=== PATIENT | male | born 1975 | race American Indian/Alaskan Native ===

== ENCOUNTER 2021-03-10 15:39 | Emergency (ER) | payer SELFPAY ==
[2021-03-10] MEDS ORDERED: IBUPROFEN 800 MG TAB PO ONE (18:18)
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
[2021-03-10] MEDS ORDERED: SODIUM CHLORIDE 0.9% 1000 ML 1,000 ML IV ONE (20:05)
[2021-03-10] MEDS ORDERED: ETOMIDATE 20 MG/10 ML INJ IV ONE (20:05)
--- NOTE | 2021-03-10 21:16 | XRay Report ---
RIGHT ANKLE 2 VIEWS INDICATION / CLINICAL INFORMATION: post reduction film COMPARISON: Right tibia/fibular series from earlier today. FINDINGS: BONES and JOINT(S): There has been interval closed reduction and splint placement with improved align ment of the ankle. Comminuted acute distal tibial and fibular fractures are again noted. SOFT TISSUES: Generalized edema remains along the ankle. ADDITIONAL FINDINGS: None. IMPRESSION: Improved alignment of the right ankle after closed reduction. Signer Name: Ludwin Weinberg MD Signed: 03/10/2021 9:11 PM Workstation Name: [id number]
[2021-03-10 22:25] VITALS: BP 101/71
== END 2021-03-10 22:25 | disposition home or self-care (01) ==
LOC: ED 15:39
DX: S82.851A Displaced trimalleolar fracture of right lower leg, initial encounter for closed fracture (principal); J45.909 Unspecified asthma, uncomplicated; Z79.899 Other long term (current) drug therapy; W18.30XA Fall on same level, unspecified, initial encounter; Y93.89 Activity, other specified; Y92.89 Other specified places as the place of occurrence of the external cause; Y99.8 Other external cause status
CPT/HCPCS: 27818; 73590; 73600; 96360; 99283; J7030

== ENCOUNTER 2021-05-11 07:00 | Day surgery (SDC) | payer OTHER ==
[~2021-05-11 07:00] MED LIST: ACETAMINOPHEN 500 MG TAB PO SCH; BUPIVACAINE/PF (0.5%) 5 MG/1 ML 30 ML VIAL INFILTRATI ONE; CELECOXIB 200 MG CAP PO NR; GABAPENTIN 300 MG CAP PO NR; LACTATED RINGERS 1,000 ML IV SCH; MIDAZOLAM 2 MG/2 ML INJ IV NR; NEOMY 40 MG/POLYMYXIN B 200,000 UNITS/ML (GU) AMPULE IR ONE; SODIUM CHLORIDE 0.9% IRR 1,500 ML BOTTLE IR ONE; ceFAZolin/Water 2 GM/20 ML 2 GM/20 ML SYRINGE IV NR; fentaNYL 100 MCG/2 ML INJ IV PRN
[2021-05-11] MEDS ORDERED: BACTERIOSTATIC SODIUM CHLORIDE 0.9% 30 ML VIAL INFILTRATI ONE (07:39)
[2021-05-11] MEDS ORDERED: NEOMY 40 MG/POLYMYXIN B 200,000 UNITS/ML (GU) AMPULE IR ONE ×2 (07:52→11:14)
[2021-05-11] MEDS ORDERED: BUPIVACAINE/PF (0.5%) 5 MG/1 ML 30 ML VIAL INFILTRATI ONE (07:52)
[2021-05-11] MEDS ORDERED: LIDOCAINE MPF (2%) 20 MG/1 ML VIAL 5 ML ONE (08:09)
[2021-05-11] MEDS ORDERED: propofoL 200 MG/20 ML VIAL IV ONE (08:10)
[2021-05-11] MEDS ORDERED: fentaNYL 100 MCG/2 ML INJ ONE (08:10)
--- NOTE | 2021-05-11 08:22 | Anesthesia Day of Surgery ---
Anesthesia Day of Surgery - Day of Surgery Patient Examined: Yes Patient H&P Reviewed: Yes Patient is NPO: Yes
--- NOTE | 2021-05-11 08:22 | Anesthesia Consultation ---
Anesthesia Consult and Med Hx Date of service: 05/11/21 - Airway Anesthetic Teeth Evaluation: Good ROM Head & Neck: Adequate Mental/Hyoid Distance: Adequate Mallampati Class: Class III Intubation Access Assessment: Possibly Difficult - Pre-Operative Health Status ASA Pre-Surgery Classification: ASA2 Proposed Anesthetic Plan: General Nerve Block: Adductor + popliteal - Pulmonary Hx Smoking: Yes (1/2 PPD) Hx Asthma: Yes (last inhlaer use 3 days ago) Hx Respiratory Symptoms: No Hx Sleep Apnea: No (KALEB PRE SCREEN HIGH RISK) - Cardiovascular System Hx Hypertension: No Hx Heart Attack/AMI: No - Central Nervous System CVA: No - Endocrine Hx Renal Disease: No Hx Liver Disease: No Hx Insulin Dependent Diabetes: No Hx Non-Insulin Dependent Diabetes: No Hx Thyroid Disease: No - Other Systems Hx Obesity: No - Additional Comments Anesthesia Medical History Comments: No hx anesthetic complications.
[2021-05-11] MEDS ORDERED: BUPIVACAINE/PF (0.25%) 2.5 MG/ML 30 ML VIAL INFILTRATI ONE (08:24)
--- NOTE | 2021-05-11 08:56 | XRay Report ---
RIGHT ANKLE 2 VIEW(S) INDICATION / CLINICAL INFORMATION: PREOP SURGERY ON 05/11/20 COMPARISON: 03/10/2021 FINDINGS: BONES / JOINT(S): Subacute-chronic, comminuted, distal tibia and fibula fractures with mild varus ang ulation and approximately 2 cm of tibial foreshortening. Appearance is similar when compared to 021 and there is overall anatomical alignment. There is significantly decreased attenuation of the po sterior talus suggestive of osteolysis. This is significantly different when compared to 03/10/2021. Si milar findings, however to a lesser degree are seen at the calcaneocuboid articulation. No significan t arthritis. SOFT TISSUES: No significant abnormality. ADDITIONAL FINDINGS: None. Signer Name: Marcelo Yun MD Signed: 05/11/2021 8:52 AM Workstation Name: [id number]
[2021-05-11] MEDS ORDERED: oxyCODONE /ACETAMINOPHEN 5-325MG TAB PO PRN (11:00)
[2021-05-11] MEDS ORDERED: ONDANSETRON 4 MG/2 ML INJ IV PRN (11:00)
[2021-05-11] MEDS ORDERED: ePHEDrine SULFATE 50 MG/1 ML INJ ONE (11:03)
[2021-05-11] MEDS ORDERED: SODIUM CHLORIDE 0.9% IRR 1,500 ML BOTTLE IR ONE (11:14)
[2021-05-11] MEDS ORDERED: ONDANSETRON 4 MG/2 ML INJ ONE (13:33)
[2021-05-11] MEDS ORDERED: PHENYLEPHRINE/NS 1,000 MCG/10 ML SYRINGE (OR USE) IV ONE (13:33)
[2021-05-11] MEDS: HYDROmorphone 1 MG/1 ML INJ IV PRN ×2 (14:00→14:20)
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
[2021-05-11 15:32] LABS: Hematocrit 36.7 % (35.5-45.6); Hemoglobin 12.4 gm/dl (11.8-15.2)
--- NOTE | 2021-05-11 15:33 | XRay Report ---
Right ankle 2 views INDICATION: Right ankle pain IMPRESSION: Satisfactory ORIF of right ankle. Fluoroscopy time: 35 seconds. Fluoroscopic images: 2. Signer Name: Arnaud Brush MD Signed: 05/11/2021 3:29 PM Workstation Name: [id number]
[2021-05-11 17:01] VITALS: BP 108/70
--- NOTE | 2021-05-11 17:07 | Post Anesthesia Evaluation ---
- Post Anesthesia Evaluation Patient Participated: Yes Airway Patent: Yes Stable Respiratory Function: Yes Nausea/Vomiting: No Temp > 96.8F: Yes Pain Manageable: Yes Adequeate Hydration: Yes Anesthesia Complications: No
== END 2021-05-11 16:40 | disposition home or self-care (01) ==
LOC: OR 07:00
PROVIDERS: ATTEND Orthopaedic Surgery
DX: S82.391D Other fracture of lower end of right tibia, subsequent encounter for closed fracture with routine healing (principal); S82.831D Other fracture of upper and lower end of right fibula, subsequent encounter for closed fracture with routine healing; F17.210 Nicotine dependence, cigarettes, uncomplicated; J45.909 Unspecified asthma, uncomplicated; Z98.890 Other specified postprocedural states; Z79.899 Other long term (current) drug therapy; X58.XXXD Exposure to other specified factors, subsequent encounter
CPT/HCPCS: 27720; 36415; 64447; 64450; 73600; 80048; 85014; 85018; 85025; 85610; 85730; 99285; C1713; G0378; J0690; J1170; J2250; J2370; J2405; J2704; J3010; J7120; 96361; 96374; 96375; 96376; J2270; J7030

== ENCOUNTER 2021-05-11 20:45 | Observation (INO) | payer OTHER ==
[2021-05-11 22:17] LABS: Basophils % (Auto) 0.1 % (0.0-1.8); Eosinophils % (Auto) 0.1 % (0.0-4.3); Hematocrit 33.9 % (35.5-45.6); Hemoglobin 11.3 gm/dl (11.8-15.2); Lymphocytes # (Auto) 0.8 K/mm3 (1.2-5.4); Lymphocytes % (Auto) 6.1 % (13.4-35.0); Mean Corpuscular HGB Conc 33 % (32-34); Mean Corpuscular Volume 97 fl (84-94); Monocytes # (Auto) 1.1 K/mm3 (0.0-0.8); Monocytes % (Auto) 8.8 % (0.0-7.3); Platelet Count 160 K/mm3 (140-440); Red Cell Distribution Width 13.4 % (13.2-15.2)
[2021-05-11 22:25] LABS: Blood Urea Nitrogen 6 mg/dL (9-20); Calcium 8.7 mg/dL (8.4-10.2); Hemolysis Index 8
[2021-05-11 22:31] LABS: BUN/Creatinine Ratio 12
--- NOTE | 2021-05-11 22:36 | Emergency Department Report ---
HPI - General Chief Complaint: Wound/Laceration Time Seen by Provider: 05/11/21 21:42 - HPI HPI: Room 23 The patient is a 46-year-old male present with a chief complaint of postop bleeding. The patient status post bimalleolar fracture repair earlier this afternoon by Dr. Xavier. Patient states he was discharged home this afternoon and was instructed to return if he continues to bleed. Patient states at home he noticed blood soaking through his splint and 1 to his protective pad. Patient states he soaked 2 pads and then went to sleep and when he woke back up he was still bleeding. The patient subsequently contacted Dr. Xavier and came to the emergency department. Patient denies shortness of breath or dizziness. Patient states he feels all right except for the pain in his right lower extremity ED Past Medical Hx - Past Medical History Previous Medical History?: Yes Hx Asthma: Yes (last inhlaer use 3 days ago) - Surgical History Past Surgical History?: Yes Additional Surgical History: Left ankle surgery - Family History Family history: no significant - Social History Smoking Status: Current Every Day Smoker Substance Use Type: None - Medications Home Medications: Home Medications Medication Instructions Recorded Confirmed Last Taken Type HYDROcodone/APAP 5-325 [[facility] 1 each PO Q6HR PRN #14 tablet 03/10/21 05/05/21 Unknown Rx 5/325] Oxycodone HCl/Acetaminophen 1 each PO Q6HR PRN #30 tablet 05/11/21 Unknown Rx [Percocet 10/325 mg] ED Review of Systems ROS: Stated complaint: ANKLE SURGERY/BLEEDING Other details as noted in HPI Constitutional: no symptoms reported Eyes: denies: eye pain ENT: denies: throat pain Respiratory: denies: shortness of breath Cardiovascular: denies: chest pain Endocrine: no symptoms reported Gastrointestinal: denies: abdominal pain Musculoskeletal: arthralgia Neurological: denies: headache Hematological/Lymphatic: other (Bleeding from surgical wound) Physical Exam - Physical Exam Vital Signs: Vital Signs 05/11/21 21:15 Temperature 97.4 F L Pulse Rate 94 H Respiratory 18 Rate Blood Pressure 118/70 O2 Sat by Pulse 98 Oximetry Physical Exam: GENERAL: The patient is well-developed well-nourished male lying on stretcher not appearing to be in acute distress. [] HEENT: Normocephalic. Atraumatic. Extraocular motions are intact. Patient has moist mucous membranes. NECK: Supple. Trachea midline CHEST/LUNGS: There is no respiratory distress noted. HEART/CARDIOVASCULAR: Regular. There is no tachycardia. 2+ right DP ABDOMEN: There is no abdominal distention. SKIN: There is no rash. There is no edema. There is no diaphoresis. The patient splint was taken down and 3 incisions observed (lateral, central and medial). There is a study who is of dark blood coming from the middle of the central incision site. Direct pressure was held for 5 minutes the patient continued to bleed when pressure was removed. Pressure dressing was placed NEURO: The patient is awake, alert, and oriented. The patient is cooperative. The patient has no focal neurologic deficits. The patient has normal speech. GCS 15 MUSCULOSKELETAL: There is no evidence of acute injury. ED Course Vital Signs 05/11/21 21:15 Temperature 97.4 F L Pulse Rate 94 H Respiratory 18 Rate Blood Pressure 118/70 O2 Sat by Pulse 98 Oximetry - Consultations Consultation #1: 05/11/21 22:32 Pics, video sent to and case discussed with orthopedic surgeon Dr. Xavier-agrees with pressure dressing. Requests hospitalist admit and he will evaluate the patient ED Medical Decision Making - Lab Data Result diagrams: 05/11/21 21:59 05/11/21 21:59 Laboratory Tests 05/11/21 05/11/21 05/11/21 21:59 21:59 21:59 WBC 12.5 H RBC 3.50 L Hgb 11.3 L Hct 33.9 L MCV 97 H MCH 32 MCHC 33 RDW 13.4 Plt Count 160 Lymph % (Auto) 6.1 L [place] % (Auto) 8.8 H Eos % (Auto) 0.1 Baso % (Auto) 0.1 Lymph # (Auto) 0.8 L [place] # (Auto) 1.1 H Eos # (Auto) 0.0 Baso # (Auto) 0.0 Seg Neutrophils % 84.9 H Seg Neutrophils # 10.6 H PT 13.6 INR 0.98 APTT 24.1 L Sodium 138 Potassium 3.8 Chloride 100.0 Carbon Dioxide 30 Anion Gap 12 BUN 6 L Creatinine 0.5 L Estimated GFR > 60 BUN/Creatinine Ratio 12 Glucose 107 H Calcium 8.7 - Differential Diagnosis Postop bleeding Critical care attestation.: If time is entered above; I have spent that time in minutes in the direct care of this critically ill patient, excluding procedure time. ED Disposition Clinical Impression: Postoperative bleeding from incision Disposition: DC-09 OP ADMIT IP TO THIS HOSP Is pt being admited?: Yes Does the pt Need Aspirin: No Condition: Fair Time of Disposition: 22:44 (Hospitalist paged (Dr Agrawal))
[2021-05-11 22:40] LABS: INR 0.98 (0.87-1.13); Partial Thromboplastin Time 24.1 Sec. (24.2-36.6)
[2021-05-11] MEDS ORDERED: NICOTINE 14 MG/24 HR PATCH TD ONE (23:00)
[2021-05-11] MEDS ORDERED: ACETAMINOPHEN 325 MG TAB PO PRN (23:14)
[2021-05-11] MEDS ORDERED: ONDANSETRON 4 MG/2 ML INJ IV PRN (23:14)
[2021-05-11] MEDS ORDERED: MAGNESIUM HYDROXIDE (MOM) ORAL LIQD UDC PO PRN (23:14)
[2021-05-11] MEDS ORDERED: SODIUM CHLORIDE 0.9% 1000 ML 1,000 ML IV SCH (23:15)
--- NOTE | 2021-05-11 23:20 | History and Physical Report ---
History of Present Illness Date of examination: 05/11/21 Date of admission: 05/11/2021 Chief complaint: Post-op Bleeding History of present illness: 46-year-old -Citizen Of [place] male presenting in the emergency room today complaining of bleeding from ankle postoperatively. Patient is status post bimalleolar fracture repair earlier this afternoon by Dr. Xavier and was discharged home later in the afternoon and instructed to return to the emergency room if bleeding continues. He had noticed blood soaking his splint and therefore reported to the emergency room for further evaluation. Patient denies any chest pain or shortness of breath, denies any headache or dizziness, no nausea vomiting and no abdominal pain. Work-up in the emergency room today reveals a slight drop of his hemoglobin from 12.4-11.3. Pressure dressing was applied to the right ankle bleeding site and orthopedic surgeon was consulted and notified by the ER physician. Patient is being admitted with postoperative bleeding. Past History Past Medical History: other (Asthma) Past Surgical History: Other (Ankle surgery) Social history: smoking (Current daily smoker) Family history: no significant family history Medications and Allergies Allergies Allergy/AdvReac Type Severity Reaction Status Date / Time No Known Allergies Allergy Verified 05/05/21 17:31 Home Medications Medication Instructions Recorded Confirmed Last Taken Type HYDROcodone/APAP 5-325 [[place] 1 each PO Q6HR PRN #14 tablet 03/10/21 05/12/21 Unknown Rx 5/325] Oxycodone HCl/Acetaminophen 1 each PO Q6HR PRN #30 tablet 05/11/21 05/12/21 Unknown Rx [Percocet 10/325 mg] Active Meds: Active Medications Acetaminophen (Acetaminophen 325 Mg Tab) 650 mg PO Q4H PRN PRN Reason: Pain MILD(1-3)/Fever >100.5/ROMAN Sodium Chloride (Nacl 0.9% 1000 Ml) 1,000 mls @ 75 mls/hr IV DIRECT HARRIETT Magnesium Hydroxide (Magnesium Hydroxide (Mom) Oral Liqd Udc) 30 ml PO Q4H PRN PRN Reason: Constipation Morphine Sulfate (Morphine 2 Mg/1 Ml Inj) 2 mg IV Q4H PRN PRN Reason: Pain, Moderate (4-6) Ondansetron HCl (Ondansetron 4 Mg/2 Ml Inj) 4 mg IV Q8H PRN PRN Reason: Nausea And Vomiting Sodium Chloride (Sodium Chloride 0.9% 10 Ml Flush Syringe) 10 ml IV BID HARRIETT Sodium Chloride (Sodium Chloride 0.9% 10 Ml Flush Syringe) 10 ml IV PRN PRN PRN Reason: LINE FLUSH Review of Systems Constitutional: no fever, no chills Ears, nose, mouth and throat: no nasal congestion, no sore throat Cardiovascular: no chest pain, no palpitations Respiratory: no cough, no shortness of breath Gastrointestinal: no abdominal pain, no nausea, no vomiting Genitourinary Male: no dysuria, no hematuria, no nocturia Musculoskeletal: no neck pain, no low back pain Integumentary: no rash, no pruritis Neurological: no syncope, no headaches, no confusion Exam - Constitutional Vitals: Temp Pulse Resp BP Pulse Ox 97.4 F L 94 H 18 118/70 98 05/11/21 21:15 05/11/21 21:15 05/11/21 21:15 05/11/21 21:15 05/11/21 21:15 General appearance: Present: no acute distress, well-nourished - EENT Eyes: Present: PERRL, EOM intact. Absent: scleral icterus ENT: hearing intact, clear oral mucosa, dentition normal - Neck Neck: Present: supple, normal ROM - Respiratory Respiratory effort: normal Respiratory: bilateral: CTA - Cardiovascular Rhythm: regular Heart Sounds: Present: S1 & S2. Absent: gallop, systolic murmur, diastolic murmur, rub, click - Extremities Extremities: no ischemia, pulses intact, pulses symmetrical, No edema, normal temperature, normal color, Full ROM, abnormal (Dressing on right ankle, Obvious bleeding.) Peripheral Pulses: within normal limits - Abdominal General gastrointestinal: Present: soft, non-tender, non-distended, normal bowel sounds. Absent: mass - Integumentary Integumentary: Present: clear, warm, dry, normal turgor. Absent: rash - Musculoskeletal Musculoskeletal: strength equal bilaterally - Psychiatric Psychiatric: appropriate mood/affect, intact judgment & insight, memory intact, cooperative - Neurologic Neurologic: CNII-XII intact, no focal deficits, moves all extremities Results - Labs CBC & Chem 7: 05/11/21 21:59 05/11/21 21:59 Labs: Abnormal lab results 05/11/21 05/11/21 05/11/21 Range/Units 21:59 21:59 21:59 WBC 12.5 H (4.5-11.0) K/mm3 RBC 3.50 L (3.65-5.03) M/mm3 Hgb 11.3 L (11.8-15.2) gm/dl Hct 33.9 L (35.5-45.6) % MCV 97 H (84-94) fl Lymph % (Auto) 6.1 L (13.4-35.0) % [place] % (Auto) 8.8 H (0.0-7.3) % Lymph # (Auto) 0.8 L (1.2-5.4) K/mm3 [place] # (Auto) 1.1 H (0.0-0.8) K/mm3 Seg Neutrophils % 84.9 H (40.0-70.0) % Seg Neutrophils # 10.6 H (1.8-7.7) K/mm3 APTT 24.1 L (24.2-36.6) Sec. BUN 6 L (9-20) mg/dL Creatinine 0.5 L (0.8-1.3) mg/dL Glucose 107 H (75-100) mg/dL Assessment and Plan - Patient Problems (1) Postoperative bleeding from incision Current Visit: Yes Status: Acute Plan to address problem: Pressure dressing already applied to just bleeding site We will monitor CBC. Orthopedic surgeon Dr. Xavier has been consulted and notified by the JOSE cantu. (2) DVT prophylaxis Current Visit: Yes Status: Acute Plan to address problem: We will place patient on sequential compression device. (3) Full code status Current Visit: Yes Status: Acute Plan to address problem: Patient is full code.
[2021-05-12] MEDS: MORPHINE 2 MG/1 ML INJ IV PRN ×3 (02:10→12:18)
[2021-05-12 05:08] LABS: Basophils # (Auto) 0.1 K/mm3 (0.0-0.1); Basophils % (Auto) 0.7 % (0.0-1.8); Eosinophils % (Auto) 0.1 % (0.0-4.3); Hematocrit 34.7 % (35.5-45.6); Hemoglobin 11.7 gm/dl (11.8-15.2); Lymphocytes # (Auto) 0.9 K/mm3 (1.2-5.4); Lymphocytes % (Auto) 9.6 % (13.4-35.0); Mean Corpuscular HGB Conc 34 % (32-34); Mean Corpuscular Volume 95 fl (84-94); Monocytes % (Auto) 10.3 % (0.0-7.3); Platelet Count 162 K/mm3 (140-440); Red Blood Count 3.66 M/mm3 (3.65-5.03); Red Cell Distribution Width 13.3 % (13.2-15.2)
[2021-05-12 05:16] LABS: INR 0.97 (0.87-1.13)
[2021-05-12 05:23] LABS: Blood Urea Nitrogen 5 mg/dL (9-20); Hemolysis Index 2
[2021-05-12 05:24] LABS: BUN/Creatinine Ratio 10
--- NOTE | 2021-05-12 10:17 | Progress Note ---
Assessment and Plan Assessment and plan: Open reduction internal fixation of 2-month-old distal tib-fib fracture Postop bleeding episode (1) Postoperative bleeding from incision Current Visit: Yes Status: Acute Plan to address problem: Pressure dressing already applied to just bleeding site We will monitor CBC. Orthopedic surgeon Dr. Xavier has been consulted and notified by the ER physician. (2) DVT prophylaxis Current Visit: Yes Status: Acute Plan to address problem: We will place patient on sequential compression device. (3) Full code status Current Visit: Yes Status: Acute Plan to address problem: Patient is full code. Follow orthopedic evaluation and recommendations Possible discharge in 1 to 2 days if stable Plan of care reviewed with the patient and his nurse History Interval history: I have seen and examined the patient at the bedside this afternoon Patient's chart and medications reviewed Patient's leg is in dressing No new episodes of bleeding Patient complains of some pain at the surgical site Vital signs noted Hospitalist Physical - Constitutional Vitals: Temp Pulse Resp BP Pulse Ox 98.1 F 85 18 109/57 93 05/12/21 07:56 05/12/21 07:56 05/12/21 08:24 05/12/21 07:56 05/12/21 07:56 General appearance: Present: no acute distress, well-nourished - EENT Eyes: Present: PERRL, EOM intact - Neck Neck: Present: supple, normal ROM - Respiratory Respiratory effort: normal Respiratory: bilateral: diminished, negative: rales, rhonchi, wheezing - Cardiovascular Rhythm: regular Heart Sounds: Present: S1 & S2 - Extremities Extremities: no ischemia, No edema - Abdominal General gastrointestinal: soft, non-tender, non-distended, normal bowel sounds - Integumentary Integumentary: Present: clear, warm - Psychiatric Psychiatric: appropriate mood/affect, cooperative - Neurologic Neurologic: CNII-XII intact, moves all extremities Results - Labs CBC & Chem 7: 05/12/21 04:45 05/12/21 04:45 Labs: Laboratory Last Values WBC 9.8 K/mm3 (4.5-11.0) 05/12/21 04:45 RBC 3.66 M/mm3 (3.65-5.03) 05/12/21 04:45 Hgb 11.7 gm/dl (11.8-15.2) L 05/12/21 04:45 Hct 34.7 % (35.5-45.6) L 05/12/21 04:45 MCV 95 fl (84-94) H 05/12/21 04:45 MCH 32 pg (28-32) 05/12/21 04:45 MCHC 34 % (32-34) 05/12/21 04:45 RDW 13.3 % (13.2-15.2) 05/12/21 04:45 Plt Count 162 K/mm3 (140-440) 05/12/21 04:45 Lymph % (Auto) 9.6 % (13.4-35.0) L 05/12/21 04:45 [place] % (Auto) 10.3 % (0.0-7.3) H 05/12/21 04:45 Eos % (Auto) 0.1 % (0.0-4.3) 05/12/21 04:45 Baso % (Auto) 0.7 % (0.0-1.8) 05/12/21 04:45 Lymph # (Auto) 0.9 K/mm3 (1.2-5.4) L 05/12/21 04:45 [place] # (Auto) 1.0 K/mm3 (0.0-0.8) H 05/12/21 04:45 Eos # (Auto) 0.0 K/mm3 (0.0-0.4) 05/12/21 04:45 Baso # (Auto) 0.1 K/mm3 (0.0-0.1) 05/12/21 04:45 Seg Neutrophils % 79.3 % (40.0-70.0) H 05/12/21 04:45 Seg Neutrophils # 7.8 K/mm3 (1.8-7.7) H 05/12/21 04:45 PT 13.5 Sec. (12.2-14.9) 05/12/21 04:45 INR 0.97 (0.87-1.13) 05/12/21 04:45 APTT 24.1 Sec. (24.2-36.6) L 05/11/21 21:59 Sodium 137 mmol/L (137-145) 05/12/21 04:45 Potassium 4.1 mmol/L (3.6-5.0) 05/12/21 04:45 Chloride 100.6 mmol/L (98-107) 05/12/21 04:45 Carbon Dioxide 28 mmol/L (22-30) 05/12/21 04:45 Anion Gap 13 mmol/L 05/12/21 04:45 BUN 5 mg/dL (9-20) L 05/12/21 04:45 Creatinine 0.5 mg/dL (0.8-1.3) L 05/12/21 04:45 Estimated GFR > 60 ml/min 05/12/21 04:45 BUN/Creatinine Ratio 10 % 05/12/21 04:45 Glucose 108 mg/dL (75-100) H 05/12/21 04:45 Calcium 9.0 mg/dL (8.4-10.2) 05/12/21 04:45 Kumar/IV: Voiding Method Toilet Active Medications - Current Medications Current Medications: Generic Name Dose Route Start Last Admin Trade Name Freq PRN Reason Stop Dose Admin Acetaminophen 650 mg 05/11/21 23:14 Acetaminophen 325 Mg Tab PO Q4H PRN Pain MILD(1-3)/Fever >100.5/ROMAN Sodium Chloride 1,000 mls @ 75 mls/hr 05/11/21 23:15 05/12/21 02:12 Nacl 0.9% 1000 Ml IV 75 mls/hr DIRECT HARRIETT Administration Magnesium Hydroxide 30 ml 05/11/21 23:14 Magnesium Hydroxide (Mom) Oral Liqd Udc PO Q4H PRN Constipation Morphine Sulfate 2 mg 05/11/21 23:14 05/12/21 08:24 Morphine 2 Mg/1 Ml Inj IV 2 mg Q4H PRN Administration Pain, Moderate (4-6) Ondansetron HCl 4 mg 05/11/21 23:14 05/12/21 08:24 Ondansetron 4 Mg/2 Ml Inj IV 4 mg Q8H PRN Administration Nausea And Vomiting Sodium Chloride 10 ml 05/12/21 10:00 05/12/21 09:17 Sodium Chloride 0.9% 10 Ml Flush Syringe IV 10 ml BID HARRIETT Administration Sodium Chloride 10 ml 05/11/21 23:14 Sodium Chloride 0.9% 10 Ml Flush Syringe IV PRN PRN LINE FLUSH
[2021-05-12 13:56] VITALS: BP 118/71
--- NOTE | 2021-05-12 14:54 | Discharge Summary ---
Providers - Providers Date of Admission: 05/11/21 22:58 Date of discharge: 05/12/21 Attending physician: CADENCE VILLAGRAN 05/11/21 22:36 Consult to Physician [CONS] Urgent Comment: Dr. Argueta spoke with Dr. Xavier @ [phone] Consulting Provider: RHEA XAVIER Physician Instructions: Reason For Exam: Postop bleeding Primary care physician: [employer] Hospitalization Reason for admission: Postoperative bleeding from ankle Condition: Fair Hospital course: Open reduction internal fixation of 2-month-old distal tib-fib fracture Admitted with postop bleeding episode, symptomatically managed, evaluated by orthopedic surgeon Dr. Xavier s/p ORIF right ankle, developed post op bleeding admitted for observation currently c/o incisional pain otherwise ok no active bld noted today, cleared by orthopedic surgeon For discharge and follow-up per schedule Patient is already given all the prescriptions Patient is hemodynamically and clinically stable at discharge Discharge diagnosis --s/p ORIF right ankle, --Postop bleeding at the incision site/resolved; Evaluated by orthopedic surgeon Dressing changed, stable --Pain at the surgical site Patient already has pain medications Stable at discharge Disposition: DC-01 TO HOME OR SELFCARE Final Discharge Diagnosis (Prints w/discharge instructions): s/p ORIF right ankle. Postop bleeding at the incision site/resolved. Pain at the surgical site/on pain medications Time spent for discharge: 35 min Core Measure Documentation - Palliative Care Palliative Care/ Comfort Measures: Not Applicable - Core Measures Any of the following diagnoses?: none Exam - Constitutional Vitals: Temp Pulse Resp BP Pulse Ox 98.1 F 87 18 118/71 96 05/12/21 11:00 05/12/21 11:00 05/12/21 12:21 05/12/21 11:00 05/12/21 11:00 General appearance: Present: no acute distress, well-nourished - EENT Eyes: Present: PERRL, EOM intact - Neck Neck: Present: supple, normal ROM - Respiratory Respiratory effort: normal Respiratory: bilateral: diminished, negative: rales, rhonchi, wheezing - Cardiovascular Rhythm: regular Heart Sounds: Present: S1 & S2 - Extremities Extremities: no ischemia, No edema - Abdominal General gastrointestinal: Present: soft, non-tender, non-distended, normal bowel sounds - Integumentary Integumentary: Present: clear, warm - Musculoskeletal Musculoskeletal: strength equal bilaterally Plan Activity: advance as tolerated Diet: regular Additional Instructions: Follow-up postoperative instructions given to you by orthopedic surgeon. Follow-up with primary care physician/Ortho per schedule. If you have worsening symptoms contact MD or go to the emergency room as needed Follow up with: PRIMARY MD BELLE [Primary Care Provider] - 7 Days RHEA XAVIER MD [Staff Physician] - 7 Days
--- NOTE | 2021-05-12 14:59 | Progress Note ---
Assessment and Plan s/p ORIF right tib-fib fx doing ok will dc to home, RTC in 1wk for f/u... Subjective Date of service: 05/12/21 Interval history: s/p ORIF right ankle, developed post op bleeding admitted for observation currently c/o incisional pain otherwise ok no active bld noted today Objective Vital signs: Vital Signs - 12hr 05/12/21 05/12/21 05/12/21 04:37 07:56 08:24 Temperature 98.4 F 98.1 F Pulse Rate 77 85 Respiratory 18 20 18 Rate Blood Pressure 104/65 109/57 [Left] O2 Sat by Pulse 92 93 Oximetry 05/12/21 05/12/21 05/12/21 11:00 12:18 12:21 Temperature 98.1 F Pulse Rate 87 Respiratory 16 18 18 Rate Blood Pressure 118/71 [Left] O2 Sat by Pulse 96 Oximetry - Labs CBC & BMP: 05/12/21 04:45 05/12/21 04:45 Labs: Abnormal lab results 05/11/21 05/11/21 05/11/21 Range/Units 21:59 21:59 21:59 WBC 12.5 H (4.5-11.0) K/mm3 RBC 3.50 L (3.65-5.03) M/mm3 Hgb 11.3 L (11.8-15.2) gm/dl Hct 33.9 L (35.5-45.6) % MCV 97 H (84-94) fl Lymph % (Auto) 6.1 L (13.4-35.0) % [place] % (Auto) 8.8 H (0.0-7.3) % Lymph # (Auto) 0.8 L (1.2-5.4) K/mm3 [place] # (Auto) 1.1 H (0.0-0.8) K/mm3 Seg Neutrophils % 84.9 H (40.0-70.0) % Seg Neutrophils # 10.6 H (1.8-7.7) K/mm3 APTT 24.1 L (24.2-36.6) Sec. BUN 6 L (9-20) mg/dL Creatinine 0.5 L (0.8-1.3) mg/dL Glucose 107 H (75-100) mg/dL 05/12/21 05/12/21 Range/Units 04:45 04:45 WBC (4.5-11.0) K/mm3 RBC (3.65-5.03) M/mm3 Hgb 11.7 L (11.8-15.2) gm/dl Hct 34.7 L (35.5-45.6) % MCV 95 H (84-94) fl Lymph % (Auto) 9.6 L (13.4-35.0) % [place] % (Auto) 10.3 H (0.0-7.3) % Lymph # (Auto) 0.9 L (1.2-5.4) K/mm3 [place] # (Auto) 1.0 H (0.0-0.8) K/mm3 Seg Neutrophils % 79.3 H (40.0-70.0) % Seg Neutrophils # 7.8 H (1.8-7.7) K/mm3 APTT (24.2-36.6) Sec. BUN 5 L (9-20) mg/dL Creatinine 0.5 L (0.8-1.3) mg/dL Glucose 108 H (75-100) mg/dL
== END 2021-05-12 15:59 | disposition home or self-care (01) ==
LOC: ED 20:45 → 3B-SURG 22:58
PROVIDERS: ADMIT Internal Medicine Geriatric Medicine; ATTEND Internal Medicine
DX: L76.22 Postprocedural hemorrhage of skin and subcutaneous tissue following other procedure (principal); M96.830 Postprocedural hemorrhage of a musculoskeletal structure following a musculoskeletal system procedure; J45.909 Unspecified asthma, uncomplicated; F17.210 Nicotine dependence, cigarettes, uncomplicated; Z79.899 Other long term (current) drug therapy; Z98.890 Other specified postprocedural states
CPT/HCPCS: 36415; 80048; 85025; 85610; 85730; 96361; 96374; 96375; 96376; 99285; G0378; J2270; J2405; J7030; 64447; 64450; 85014; 85018; C1713; J0690; J1170; J2250; J2370; J2704; J3010; J7120

== ENCOUNTER 2021-07-05 13:53 | Outpatient (CLI) | payer OTHER ==
--- NOTE | 2021-07-05 15:33 | XRay Report ---
RIGHT TIBIA-FIBULA 2 VIEW(S) INDICATION / CLINICAL INFORMATION: DISPLACED TRIMALLEOLAR FRACTURE OF RIGHT LOWER LEG COMPARISON: None available. FINDINGS: BONES / JOINT(S): Patient is status post plate and screw fixation of the distal tibia and distal fib kylah. A lucency is noted through the medial malleolus without a clear connection of this fracture frag ment to the tibia. Additionally, the fracture lucency through the distal fibula remains apparent. The previously seen fibular head fracture demonstrates mild periosteal reaction indicating healing. Ther e is marked disuse osteopenia SOFT TISSUES: No significant abnormality ADDITIONAL FINDINGS: None. RIGHT ANKLE 4 VIEW(S) INDICATION / CLINICAL INFORMATION: DISPLACED TRIMALLEOLAR FRACTURE OF RIGHT LOWER LEG COMPARISON: 05/11/2021 and 03/10/2021 FINDINGS: BONES / JOINT(S): In addition to the above-mentioned findings involving the distal tibia and fibula t here is also a lucency through the base of the fifth metatarsal suggesting a nondisplaced fracture. T he degree of disuse osteopenia in the foot is remarkable. SOFT TISSUES: There is mild soft tissue swelling along the dorsum of the foot. ADDITIONAL FINDINGS: None. Signer Name: Reinier Kerns DO Signed: 07/05/2021 3:28 PM Workstation Name: [id number]
== END 2021-07-05 13:54 | disposition home or self-care (01) ==
LOC: XRAY 13:53
PROVIDERS: ATTEND Orthopaedic Surgery
DX: S82.851A Displaced trimalleolar fracture of right lower leg, initial encounter for closed fracture (principal); M79.89 Other specified soft tissue disorders; M85.861 Other specified disorders of bone density and structure, right lower leg; X58.XXXA Exposure to other specified factors, initial encounter; Y93.89 Activity, other specified; Y92.89 Other specified places as the place of occurrence of the external cause; Y99.8 Other external cause status